=== PATIENT | male | born 1975 | race Asian ===

== ENCOUNTER 2020-07-20 20:25 | Emergency (ER) | payer BC ==
[~2020-07-20] VITALS: Ht 162.6 cm; Wt 77.1 kg
[2020-07-20 20:25] VITALS: BP_SYST 213
[2020-07-20] MEDS ORDERED: cloNIDine HCL 0.1 MG TABLET ONE (21:29)
[2020-07-20] MEDS: cloNIDine HCL 0.1 MG TABLET PO ONE (21:33)
[2020-07-20 22:26] VITALS: BP_SYST 158
== END 2020-07-20 23:12 | disposition home or self-care (01) ==
LOC: SED 20:25
DX: S61.012A Laceration without foreign body of left thumb without damage to nail, initial encounter (principal); I10 Essential (primary) hypertension; W45.8XXA Other foreign body or object entering through skin, initial encounter; Y93.G1 Activity, food preparation and clean up; Y92.89 Other specified places as the place of occurrence of the external cause; Y99.8 Other external cause status
CPT/HCPCS: 99283

== ENCOUNTER 2020-08-13 08:35 | Emergency (ER) | payer BC ==
[~2020-08-13] VITALS: Ht 162.6 cm; Wt 74.8 kg
[2020-08-13 08:43] VITALS: BP_SYST 186
[2020-08-13 09:13] VITALS: BP_SYST 186
== END 2020-08-13 14:26 | disposition home or self-care (01) ==
LOC: SED 09:35
DX: S61.012D Laceration without foreign body of left thumb without damage to nail, subsequent encounter (principal); Z48.02 Encounter for removal of sutures; W45.8XXD Other foreign body or object entering through skin, subsequent encounter
CPT/HCPCS: 99281